=== PATIENT | female | born 1980 | race Two or more races ===

== ENCOUNTER 2016-09-27 16:35 | Emergency (ER) | payer MEDICAID ==
[~2016-09-27] VITALS: Ht 157.5 cm; Wt 83.9 kg
[2016-09-27 16:41] VITALS: BP 100/75
[2016-09-27] MEDS ORDERED: IBUPROFEN 800 MG TAB PO ONE ×2 (17:34→17:45)
== END 2016-09-27 17:51 | disposition home or self-care (01) ==
LOC: EDBD 16:35 → ER 16:44
DX: S96.911A Strain of unspecified muscle and tendon at ankle and foot level, right foot, initial encounter (principal); W01.0XXA Fall on same level from slipping, tripping and stumbling without subsequent striking against object, initial encounter; Y93.89 Activity, other specified; Y92.89 Other specified places as the place of occurrence of the external cause; Y99.8 Other external cause status
CPT/HCPCS: 73610; 73630

== ENCOUNTER 2017-05-21 10:18 | Emergency (ER) | payer MEDICAID ==
[~2017-05-21] VITALS: Ht 157.5 cm; Wt 74.4 kg
[2017-05-21] MEDS ORDERED: ONDANSETRON HCL 4 MG/2 ML VIAL IV ONE (11:15)
[2017-05-21] MEDS ORDERED: MORPHINE SULFATE 4 MG/ML SYR/VIAL IV ONE (11:15)
[2017-05-21] MEDS ORDERED: SODIUM CHLORIDE 0.9% 1,000 ML IVB ONE (11:15)
[2017-05-21] MEDS ORDERED: KETOROLAC TROMETH 30 MG/ML 1ML VIAL IV ONE (11:30)
[2017-05-21 11:34] VITALS: BP 110/78
[2017-05-21 11:38] LABS: Urine Bacteria FEW /hpf (None Seen); Urine Blood TRACE /uL (Negative); Urine WBC 4 /hpf (0 - 5)
[2017-05-21 11:51] LABS: Basophils # (auto) 0.1 uL; Eosinophils # (auto) 0.1 uL; Eosinophils % (auto) 1.6 % (0.0-7.0); Hematocrit 40.2 % (36.0-46.0); Hemoglobin 13.5 g/dL (12.2-16.2); Lymphocytes # (auto) 2.6 uL; Lymphocytes % (auto) 45.6 % (10.0-50.0); Mean Corpuscular Hemoglobin 29.4 pg (28.0-32.0); Mean Corpuscular Hgb Conc. 33.6 g/dL (32.0-36.0); Mean Corpuscular Volume 87.6 fL (80.0-100.0); Monocytes # (auto) 0.4 uL; Monocytes % (auto) 7.2 % (0.0-12.0); Neutrophils # (auto) 2.5 uL; Neutrophils % (auto) 44.6 % (37.0-80.0); Nucleated Red Blood Cells % 0.1 %; Platelet Count (auto) 210 10^3/uL (140-450); Red Blood Cells 4.59 10^6/uL (4.0-5.20); Red Cell Distribution Width 13.9 % (11.8-14.3); White Blood Cell 5.6 10^3/uL (4.4-10.8)
[2017-05-21 12:08] LABS: INR 0.98 (0.9-1.15); Partial Thromboplastin Time 26.6 sec (22.64-33.71); Prothrombin Time 10.7 sec (9.37-12.3)
[2017-05-21 12:27] LABS: Albumin 3.4 g/dL (3.4-5.0); BUN/Creatinine Ratio 14.8; Bilirubin, Total 0.3 mg/dL (0.2-1.0); Calcium 8.1 mg/dL (8.5-10.1); Potassium 3.6 mmol/L (3.5-5.1); Total Protein 6.9 g/dL (6.4-8.2)
== END 2017-05-21 13:44 | disposition home or self-care (01) ==
LOC: ER 10:18
DX: N39.0 Urinary tract infection, site not specified (principal)
CPT/HCPCS: 36415; 74176; 80053; 81001; 81025; 83690; 83735; 85025; 85610; 85730; 94761; 96361; 96374; 99285; J1885

== ENCOUNTER 2020-08-06 12:57 | Emergency (ER) | payer MEDICAID ==
[~2020-08-06] VITALS: Ht 167.6 cm; Wt 72.6 kg
[2020-08-06 17:15] VITALS: BP 110/85
== END 2020-08-06 17:17 | disposition home or self-care (01) ==
LOC: ER 12:57 → EDBD 12:57 → ER 17:17
DX: S73.102A Unspecified sprain of left hip, initial encounter (principal); W18.2XXA Fall in (into) shower or empty bathtub, initial encounter; Y93.89 Activity, other specified; Y92.89 Other specified places as the place of occurrence of the external cause; Y99.8 Other external cause status
CPT/HCPCS: 72170; 73502

== ENCOUNTER 2021-03-20 10:17 | Emergency (ER) | payer MEDICAID ==
[~2021-03-20] VITALS: Ht 157.5 cm; Wt 88.5 kg
[2021-03-20] MEDS ORDERED: TRAM-297 PO (11:47)
[2021-03-20 11:52] VITALS: BP 157/73
== END 2021-03-20 12:03 | disposition home or self-care (01) ==
LOC: ER 10:17
DX: M54.12 Radiculopathy, cervical region (principal); M25.512 Pain in left shoulder
CPT/HCPCS: 72040; 73030